=== PATIENT | male | born 1940 | race Caucasian/White ===

== ENCOUNTER → 2019-07-07 15:37 | Outpatient (BNVA) | payer MEDICARE, OTHER, SELFPAY | PROVIDERS: Family Provider Nurse Practitioner Family; Visit Provider Family Medicine | DX: Z85.118 Personal history of other malignant neoplasm of bronchus and lung (principal); I70.90 Unspecified atherosclerosis | CPT/HCPCS: 71046 ==

== ENCOUNTER → 2019-09-29 09:59 | Outpatient (BNVA) | payer MEDICARE, OTHER, SELFPAY | PROVIDERS: Family Provider Nurse Practitioner Family; PCP Family Medicine; Visit Provider Anesthesiology Pain Medicine | DX: G50.0 Trigeminal neuralgia (principal); D49.6 Neoplasm of unspecified behavior of brain | CPT/HCPCS: 99203; 99205 ==

== ENCOUNTER 2019-11-10 10:46 | Outpatient (CLI) | payer MEDICARE, OTHER, SELFPAY ==
--- NOTE | 2019-11-10 11:00 | MR_ITS ---
WS: [id number] MRI HEAD WITHOUT CONTRAST TECHNIQUE: Sagittal T1, T2 axial, T2 axial FLAIR, axial and coronal T1 images, axial susceptibility w eighted imaging, axial diffusion weighted images, and coronal T2 images were obtained. CLINICAL INFORMATION: tumor COMPARISON: MRI multiple additional prior exams including 2018, 2014, 2013, 2012. 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 This is not significantly changed since . Mass effect on the middle cerebellar peduncle. Mild mass effect on the aqueduct which remains patent. Ventricle size is unchanged. No hydrocephalus. 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 Today's lesion again measures 2.5 x 2.0 cm on the coronal T2 jhon ging as previously measured. Again seen is extension to involve the seventh and eighth proximal crani al nerves. Prior postoperative changes involving the left lateral cerebellum with stable encephalomal acia and gliosis. Mild small vessel changes. Moderate parenchymal volume loss. Normal vascular flow voids at the skull base. No extra axial fluid collections. Mild mucosal thickening ethmoid air cells. No hemosiderin on the susceptibility weighted images. MR/MR head wo con* [id number] IMPRESSION: 1. 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 Associated mass effect on the left cerebellopontine angle and left aspect o f the marly is stable. Stable mass effect on the aqueduct and middle cerebellar peduncle. 3. No hydrocephalus. 4. No other significant changes.
== END 2019-11-10 10:47 | disposition home or self-care (01) ==
LOC: RADSHAW 10:54
PROVIDERS: PCP Family Medicine; Visit Provider Family Medicine
DX: D49.6 Neoplasm of unspecified behavior of brain (principal)
CPT/HCPCS: 70551

== ENCOUNTER → 2019-11-15 08:58 | Outpatient (BNVA) | payer MEDICARE, OTHER, SELFPAY | PROVIDERS: Family Provider Nurse Practitioner Family; PCP Family Medicine; Visit Provider Anesthesiology Pain Medicine | DX: G50.0 Trigeminal neuralgia (principal) | CPT/HCPCS: 99212; 99213 ==

== ENCOUNTER → 2020-01-19 12:21 | Outpatient (BNVA) | payer MEDICARE, OTHER, SELFPAY | PROVIDERS: Family Provider Nurse Practitioner Family; PCP Family Medicine; Visit Provider Family Medicine | DX: R30.0 Dysuria (principal); R97.20 Elevated prostate specific antigen [PSA] | CPT/HCPCS: G0103 ==

== ENCOUNTER → 2020-02-23 11:46 | Outpatient (BNVA) | payer MEDICARE, OTHER, SELFPAY | PROVIDERS: Family Provider Nurse Practitioner Family; PCP Family Medicine; Visit Provider Family Medicine | DX: R19.7 Diarrhea, unspecified (principal) | CPT/HCPCS: 87177; 87205; 87209; 87493; 87506 ==

== ENCOUNTER → 2020-03-14 08:58 | Outpatient (BNVA) | payer MEDICARE, OTHER, SELFPAY | PROVIDERS: Family Provider Nurse Practitioner Family; PCP Family Medicine; Referring Provider Family Medicine; Visit Provider Urology | DX: N40.1 Benign prostatic hyperplasia with lower urinary tract symptoms (principal); R35.1 Nocturia; R30.0 Dysuria | CPT/HCPCS: 81003 ==

== ENCOUNTER 2020-04-10 14:58 | Outpatient (CLI) | payer MEDICARE, OTHER, SELFPAY ==
--- NOTE | 2020-04-10 15:03 | USCV_ITS ---
RiosChuck Age: 79 Gender: M : 1940 Exam Date: 04/10/2020 14:56 Ordering Phys: Anabel Lewis MD Technologist: Anita Chandler [place] [facility] [place]: left carotid bruit Risk Factors: Previous Vascular Surgery: Right Brachial BP: / Left Brachial BP: / Right Left Velocity (cm/s) Spectral Plaque Velocity (cm/s) Spectral Plaque Syst/Diast Broadening Syst/Diast Broadening 72.80/ 16.50 Prox CCA 66.60 / 15.60 60.60/ 14.30 Mid CCA 62.40 / 14.60 48.50/ 17.60 Distal CCA 53.10 / 12.50 37.60/ 10.00 Prox ICA 45.40 / 17.60 52.90/ 19.90 Mid ICA 56.30 / 20.20 49.80/ 17.60 Distal ICA 60.50 / 21.80 88.20 ECA 57.10 0.87 ICA/CCA 0.97 Antegrade Vertebral Antegrade 27.60/ 9.20 cm/s 26.60/ 11.00 cm/s Tri Subclavian Tri 63.60 89.90 CONCLUSIONS Right ICA stenosis <50%. Mild atheromatous plaque right carotid bulb/ICA. Left ICA stenosis <50%. Mild atheromatous plaque left carotid bulb/ICA. Normal antegrade Doppler flow noted in the right vertebral artery. Normal antegrade Doppler flow noted in the left vertebral artery. Nba Jean Baptiste MD (Electronically Signed) Final Date: 10 April 2020 17:13 S
== END 2020-04-10 14:59 | disposition home or self-care (01) ==
LOC: RAD 15:02
PROVIDERS: PCP Family Medicine; Visit Provider Family Medicine
DX: I65.23 Occlusion and stenosis of bilateral carotid arteries (principal)
CPT/HCPCS: 93880

== ENCOUNTER → 2020-04-26 10:36 | Outpatient (BNVA) | payer MEDICARE, OTHER, SELFPAY | PROVIDERS: PCP Family Medicine; Visit Provider Urology | DX: N40.1 Benign prostatic hyperplasia with lower urinary tract symptoms (principal) | CPT/HCPCS: 81003 ==

== ENCOUNTER → 2020-08-31 11:08 | Outpatient (BNVA) | payer MEDICARE, OTHER, SELFPAY | PROVIDERS: PCP Family Medicine; Visit Provider Internal Medicine Pulmonary Disease | DX: Z01.812 Encounter for preprocedural laboratory examination (principal); Z20.822 Contact with and (suspected) exposure to COVID-19 | CPT/HCPCS: 87635 ==

== ENCOUNTER 2020-09-06 13:29 | Outpatient (CLI) | payer MEDICARE, OTHER, SELFPAY ==
--- NOTE | 2020-09-06 14:07 | PFTS_ITS ---
Date of Study:09/06/20 Date of Dictation: 09/07/2020 MECHANICS: Prebronchodilator forced vital capacity (FVC) is normal. Prebronchodilator forced expiratory volume in one second (FEV1) is mildly reduced 106%. FEV1/FVC is reduced. There is no postbronchodilator study performed. FLOW VOLUME LOOP: Normal . LUNG VOLUMES: Total lung capacity (TLC) is normal. Residual volume (RV) is normal. DIFFUSING CAPACITY FOR CARBON MONOXIDE: Mildly reduced 75% . INTERPRETATION: The prebronchodilator spirometry suggestive of mild obstruction. Flow volume loop and lung volumes are normal. There is mild gas transfer defect.. Please correlate clinically. MTDD
--- NOTE | 2020-09-06 14:14 | XR_ITS ---
WS: [id number] Chest 2 views, 09/06/2020 Clinical Data: COPD Comparison: PA and lateral chest, 07/07/2019. Findings: No nodules, masses or effusions are seen. The heart is normal. The pulmonary vascularity is not increased. No pneumonia or pneumothorax is seen. The aortic arch and descending aorta shows mild tortuosity. There are surgical clips in the left hilum. There is a left cardiophrenic fat pad or cys t with left pleural reaction. XR/XR chest 2V* [id number] Impression: Atherosclerosis.
== END 2020-09-06 13:30 | disposition home or self-care (01) ==
PROVIDERS: PCP Family Medicine; Visit Provider Internal Medicine Pulmonary Disease
DX: J44.9 Chronic obstructive pulmonary disease, unspecified (principal); I70.90 Unspecified atherosclerosis
CPT/HCPCS: 71046; 94010; 94726; 94729

== ENCOUNTER 2020-10-11 21:27 | Emergency (ER) | payer MEDICARE, OTHER, SELFPAY ==
--- NOTE | 2020-10-11 21:34 | W.ED.FALL ---
HPI - Fall General: Chief Complaint: Fall Stated Complaint: fall head lac Time Seen by Provider: 10/11/20 21:29 Source: patient and EMS Mode of arrival: EMS Limitations: no limitations History of Present Illness: HPI Narrative: 80-year-old male who was recently released from [facility] yesterday after having a brain tumor removed. He tripped and fell today at [facility] at [facility] and struck his head. He does have a hematoma to the right forehead. Denies any loss conscious. He denies headache. Denies any other injuries. Denies any pain in his upper or lower extremities. Associated symptoms-after fall: Denies abdominal pain, chest pain, headache(s) or neck pain Review of Systems Const: Denies: fever(s), chills, body aches or change in appetite Eyes: Denies: blurry vision or eye discomfort ENMT: Denies: throat pain or dental pain Card: Denies: chest pain Resp: Denies: dyspnea GI: Denies: abdominal pain, nausea, vomiting or diarrhea : Denies: dysuria Musc: Denies: neck pain or back pain Skin/Breast: Denies: rash Neuro: Denies: headache(s) Psych: Denies: depression Theodore/Lymph: Denies: easy bruising All/Imm: Denies: urticaria PFSH ED PFSH: Medical History Anxiety Aortic aneurysm Cataract Cerebellar tumor Diverticulitis Emphysema lung H/O: lung cancer 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 FRANK (obstructive sleep apnea) Pain management contract signed Skin lesion Surgical History Hx of appendectomy Hx of tonsillectomy Family History Other CHF (congestive heart failure) Lung disease Social History Smoking and tobacco status: former smoker Quit status (tobacco): has quit using tobacco Year quit tobacco: 2004 Alcohol intake: never Household members: spouse Marital status: Physical Exam Const: COMMON NORMALS: no acute distress, patient oriented x3 and healthy appearing HENMT: COMMON NORMALS: normocephalic HEAD & SCALP: normocephalic OTHER: hematoma to right forehead and abrasion to scalp Eye: COMMON NORMALS: Equal, round and reactive pupils present and EOMs intact bilaterally PUPIL: Yes Equal, round and reactive pupils present Neck/C-Spine: COMMON NORMALS: full ROM and supple Chest: COMMONS NORMALS: normal inspection of the chest and normal palpation of entire chest wall Resp: COMMON NORMALS: normal respiratory effort, No retractions, No use of accessory muscles and clear to auscultation bilaterally AUSCULTATION: clear to auscultation bilaterally Cardio: COMMON NORMALS: regular rate, regular rhythm and No murmurs present (Cardio) RATE: regular rate RHYTHM: regular rhythm GI: COMMON NORMALS: Normal to inspection, nondistended, normoactive bowel sounds present, Soft to palpation, non-tender and no masses PALPATION: Yes Soft to palpation Extremity: COMMON NORMALS: normal to inspection and full ROM Neuro: COMMON NORMALS: patient oriented x3, moves all extremities and no focal motor deficits Psych: COMMON NORMALS: mental status grossly normal, Normal thought process present and cooperative THOUGHT PROCESS: Normal thought process present Skin: COMMON NORMALS: no rashes or lesions noted and no wounds GENERAL SKIN EXAM: no rashes or lesions noted MDM - Fall MDM Narrative: Medical decision making narrative: Patient presents here with fall and has a subarachnoid hemorrhage from his fall. I spoke to physician at [facility] and will transfer there for higher level of care for neurosurgery. Lab Data: Labs: Lab Results 10/11/20 10/11/20 10/11/20 Range/Units 22:35 22:35 22:35 WBC 16.6 H (4.0-10.0) 10^3/ uL RBC 4.47 (4.1-5.3) 10^6/u L Hgb 14.6 (11.7-16.6) g/dL Hct 40.8 L (42.0-52.0) % MCV 91.3 (80-94) fL MCH 32.7 (28.0-34.0) pg MCHC 35.8 (30.0-36.0) g/dL RDW 12.1 (12.1-15.1) % Plt Count 171 (130-400) 10^3/c mm MPV 9.4 (7.4-10.4) fL Neut % (Auto) 86.1 % Lymph % (Auto) 3.4 % Clare % (Auto) 7.5 % Eos % (Auto) 0.0 % Baso % (Auto) 0.3 % Neut # (Auto) 14.30 H (1.8-7.7) 10^3/u L Lymph # (Auto) 0.6 L (0.8-4.8) 10^3/u L Clare # (Auto) 1.3 H (0.2-0.9) 10^3/u L Eos # (Auto) 0.0 (0.0-0.8) 10^3/u L Baso # (Auto) 0.1 (0.0-0.1) 10^3/u L Nucleated RBC % (a uto) 0 % Nucleated RBCs # 0.0 /100WBC PT 13.90 (12.1-14.9) SECO NDS INR 1.04 (0.8-1.2) Sodium 127 L (136-145) mmol/L Potassium 4.5 (3.5-5.1) mmol/L Chloride 92 L (98-107) mmol/L Carbon Dioxide 24 (22-29) mmol/L Anion Gap 15.5 (5-19) BUN 32 H (8-23) mg/dL Creatinine 0.7 (0.7-1.2) mg/dL GFR Calculation Not Reportable Glucose 179 H (65-115) mg/dL Calculated Osmolal ity 275 L (285-295) mOsm/k g Calcium 8.6 (8.5-10.5) mg/dL Total Bilirubin 1.3 H (0.15-1.2) mg/dL AST 13 (0-40) U/L ALT 30 (0-41) U/L Alkaline Phosphata se 64 (40-130) IU/L Total Protein 5.8 L (6.6-8.7) g/dL Albumin 3.6 (3.5-5.2) g/dL Globulin 2.2 (1.3-4.6) g/dL Imaging Data^: CT Head: Attestation: I personally reviewed and interpreted this imaging study as follows: Radiologist's impression: [address] [address] [address] Scan Report Signed with Addenda Patient: Chuck Rios Unit #: [id number] : 1940 [id number] Age/Sex: 80 / M ADM Date: 10/11/20 Loc: ER Room/Bed: Attending Dr: Ordering Provider/Ordering MD: Kevin Draper MD Date of Service: 10/11/20 Procedure(s): CT head wo con* [id number] Accession Number(s): [id number] Report Number: [id number]/CT head wo con* [id number] THIS REPORT CONTAINS FINDINGS THAT MAY BE CRITICAL TO PATIENT CARE. The findings were verbally communicated via telephone conference with Dr Martins at 10:22 PM CDT on 10/11/2020. The findings were acknowledged and understood. Radiation Dose CTDIVOL = (mGy): DLP = 907.51 (mGy-cm) Addendum Dictated By: Pedro Mccoy MD Addendum Signed By: Pedro Mccoy MD Signed Date/Time: 10/11/20 Addendum Cosigned By: PROCEDURE INFORMATION: Exam: CT Head Without Contrast Exam date and time: 10/11/2020 9:33 PM Age: 80 years old Clinical indication: Injury or trauma; Blunt trauma (contusions or hematomas); Injury details: Fall. Pain in head and neck. Multiple gonzalo in the back of head and neck. Recent brain surgery; Prior surgery TECHNIQUE: Imaging protocol: Computed tomography of the head without contrast. Radiation optimization: All CT scans at this facility use at least one of these dose optimization techniques: automated exposure control; mA and/or kV adjustment per patient size (includes targeted exams where dose is matched to clinical indication); or iterative reconstruction. COMPARISON: MR head wo con* [id number] 11/10/2019 1:02 PM RADIATION DOSE METRICS: Total DLP (mGy-cm): 907.51 FINDINGS: Brain: There is hyperdensity in the extra-axial region in the left occipital lobe which may represent thickened dura/scarring. Small amount of hemorrhage cannot be excluded. There are moderate periventricular and subcortical lucencies consistent with chronic microvascular ischemic changes. Hyperdensity in the extra-axial region in the right frontal lobe (series 2, image 49 ) may represent a small subarachnoid hemorrhage. Cerebral ventricles: No ventriculomegaly. Paranasal sinuses: Visualized sinuses are unremarkable. No fluid levels. Mastoid air cells: Visualized mastoid air cells are well aerated. Orbital cavity: Scleral banding on the left. Bones/joints: Hyperdensity evidence of prior left occipital craniotomy with postoperative changes. Soft tissues: Unremarkable. CT/CT head wo con* [id number] IMPRESSION: Hyperdensity in the right frontal lobe may represent a small subarachnoid acute hemorrhage. Prior left occipital craniotomy with postoperative changes. Hyperdensity in the extra-axial lesion in the left occipital lobe which may represent thickened dura/scarring. Small amount of hemorrhage cannot be excluded. Short-term follow-up is recommended for stability. Radiation Dose CTDIVOL = (mGy): DLP = 907.51 (mGy-cm) Other CT: Radiologist's impression: [employer] [address] [address] Scan Report Signed Patient: Chuck Rios Unit #: [id number] : 1940 Age/Sex: 80 / M ADM Date: 10/11/20 Loc: ER Room/Bed: Attending Dr: Ordering Provider/Ordering MD: Kevin Draper MD Date of Service: 10/11/20 Procedure(s): CT cervical spin wo con* [id number] Accession Number(s): [id number] Report Number: [id number] PROCEDURE INFORMATION: Exam: CT Cervical Spine Without Contrast Exam date and time: 10/11/2020 9:33 PM Age: 80 years old Clinical indication: Injury or trauma; Blunt trauma; Injury details: Fall. Multiple gonzalo in back of head and neck. Recent brain surgery. ; Prior surgery TECHNIQUE: Imaging protocol: Computed tomography images of the cervical spine without contrast. Radiation optimization: All CT scans at this facility use at least one of these dose optimization techniques: automated exposure control; mA and/or kV adjustment per patient size (includes targeted exams where dose is matched to clinical indication); or iterative reconstruction. COMPARISON: CR Cervical Spine AP/Lat* [id number] 03/30/2019 12:23 PM RADIATION DOSE METRICS: Total DLP (mGy-cm): 652.31 FINDINGS: Bones/joints: No acute fracture. Grade 1 anterolisthesis of C4 over C5. Multilevel degenerative disc disease. Discs/Spinal canal/Neural foramina: There is multilevel uncovertebral and facet hypertrophy with neural foramina narrowing. Lungs: Lung apices are normal. Soft tissues: Unremarkable. CT/CT cervical spin wo con* [id number] IMPRESSION: No acute abnormality. Radiation Dose CTDIVOL = (mGy): DLP = 652.31 Critical Care Time Critical Care Time: Critical Care Time: Yes Total Critical Care Time: 35 Attestation: This case had a high probability of a clinically significant, sudden, or life threatening deterioration of this patient's condition which required my full and direct attention, intervention and personal management. Discharge Plan Discharge Patient Disposition: Xfer Short-Term Hosp Clinical Impression: Subarachnoid hemorrhage Fall Qualifiers: Encounter type: initial encounter Qualified Code(s): W19.XXXA - Unspecified fall, initial encounter Condition: Stable Referrals: Mary Jo Hahn MD [Primary Care Provider] - Coding Level of Care Code ED Thread Inspector for g Fwd Exam Comprehensive
[2020-10-11 21:42] VITALS: BMI 23.6
[2020-10-11 21:53] VITALS: BP 140/78; PULSE 88; RESP 18; TEMP 37.1; O2SAT 92
--- NOTE | 2020-10-11 22:14 | PC.NURSE ---
Wound cleaned of blood to expose lac. Approx 1 inch lac to top back of head noted. Bleeding controlled without bandage. notified.
[2020-10-11 22:44] LABS: Basophils # 0.1 10^3/uL (0.0-0.1); Basophils % 0.3 %; Hematocrit 40.8 % (42.0-52.0); Hemoglobin 14.6 g/dL (11.7-16.6); Lymphocytes # 0.6 10^3/uL (0.8-4.8); Lymphocytes % 3.4 %; Mean Corpuscular HGB Conc 35.8 g/dL (30.0-36.0); Mean Corpuscular Hemoglobin 32.7 pg (28.0-34.0); Mean Corpuscular Volume 91.3 fL (80-94); Mean Platelet Volume 9.4 fL (7.4-10.4); Monocytes # 1.3 10^3/uL (0.2-0.9); Monocytes % 7.5 %; Neutrophils % 86.1 %; Nucleated Red Blood Cells % 0 %; Platelet Count 171 10^3/cmm (130-400); Red Blood Count 4.47 10^6/uL (4.1-5.3); Red Cell Distribution Width 12.1 % (12.1-15.1); White Blood Count 16.6 10^3/uL (4.0-10.0)
--- NOTE | 2020-10-11 22:44 | PC.NURSE ---
in room; she states pt has had some residual L sided weakness after the recent brain surgery. Denies dementia. 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 She states he can hear a little in R ear. notified.
[2020-10-11 22:56] LABS: INR 1.04 (0.8-1.2)
[2020-10-11 23:02] LABS: Alanine Aminotransferase 30 U/L (0-41); Albumin Level 3.6 g/dL (3.5-5.2); Alkaline Phosphatase 64 IU/L (40-130); Aspartate Amino Transferase 13 U/L (0-40); Blood Urea Nitrogen 32 mg/dL (8-23); Calcium 8.6 mg/dL (8.5-10.5); Carbon Dioxide 24 mmol/L (22-29); Chloride 92 mmol/L (98-107); Globulin 2.2 g/dL (1.3-4.6); Glucose 179 mg/dL (65-115); Osmolality Calculated 275 mOsm/kg (285-295); Sodium 127 mmol/L (136-145); Total Bilirubin 1.3 mg/dL (0.15-1.2); Total Protein 5.8 g/dL (6.6-8.7)
[2020-10-11 23:04] LABS: Anion Gap 15.5 (5-19)
[2020-10-11 23:05] LABS: Potassium 4.5 mmol/L (3.5-5.1)
[2020-10-11 23:23] VITALS: BP 142/88; PULSE 89; RESP 16; O2SAT 92
--- NOTE | 2020-10-11 23:32 | PC.NURSE ---
Report called to Parul VALDEZ, [place], [place] to Keysha Thompson RN
[2020-10-11 23:59] VITALS: BP 140/68; PULSE 78; RESP 16; O2SAT 92
== END 2020-10-12 00:05 | disposition short-term general hospital (02) ==
PROVIDERS: Emergency Provider Emergency Medicine; PCP Family Medicine
DX: S06.6X9A Traumatic subarachnoid hemorrhage with loss of consciousness of unspecified duration, initial encounter (principal); W01.0XXA Fall on same level from slipping, tripping and stumbling without subsequent striking against object, initial encounter; Y92.129 Unspecified place in nursing home as the place of occurrence of the external cause; J43.9 Emphysema, unspecified; Z85.118 Personal history of other malignant neoplasm of bronchus and lung; I10 Essential (primary) hypertension; Z87.891 Personal history of nicotine dependence
CPT/HCPCS: 70450; 72125; 80053; 85025; 85610; 99285

== ENCOUNTER 2020-10-25 19:10 | Emergency (ER) | payer MEDICARE, OTHER, SELFPAY ==
[2020-10-25 19:11] VITALS: BP 118/79; PULSE 91; RESP 14; O2SAT 100; BMI 30.5
--- NOTE | 2020-10-25 19:13 | CTR_ITS ---
PROCEDURE INFORMATION: Exam: CT Head Without Contrast Exam date and time: 10/25/2020 7:13 PM Age: 80 years old Clinical indication: Altered mental status/memory loss; Prior surgery; Additional info: Altered. Recent brain surgery TECHNIQUE: Imaging protocol: Computed tomography of the head without contrast. Radiation optimization: All CT scans at this facility use at least one of these dose optimization techniques: automated exposure control; mA and/or kV adjustment per patient size (includes targeted exams where dose is matched to clinical indication); or iterative reconstruction. COMPARISON: CT head wo con* [id number] 10/11/2020 9:45 PM RADIATION DOSE METRICS: Total DLP (mGy-cm): 1236.04 FINDINGS: Brain: Moderate diffuse atrophy of the brain parenchyma. Focal low-attenuation signal within the posterior supratentorial white matter is noted consistent with chronic small vessel ischemic disease. Similar appearance of posterior circulation infarct involving the left cerebellar peduncles and left cerebellar lobe. Cerebral ventricles: No hydrocephalus. Paranasal sinuses: Visualized sinuses are unremarkable. No fluid levels. Mastoid air cells: Visualized mastoid air cells are well aerated. Orbital cavity: Scleral banding around the left globe and post cataract surgical changes noted. Bones/joints: Sequela prior left occipital craniotomy again noted. Soft tissues: Unremarkable. CT/CT head wo con* [id number] IMPRESSION: 1. No acute intracranial abnormality. 2. 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 3. Moderate diffuse cerebral atrophy and sequela of chronic small vessel ischemic disease. Radiation Dose CTDIVOL = (mGy): DLP = 1236.04 (mGy-cm)
--- NOTE | 2020-10-25 19:20 | CTR_ITS ---
PROCEDURE INFORMATION: Exam: CT Cervical Spine Without Contrast Exam date and time: 10/25/2020 7:20 PM Age: 80 years old Clinical indication: Injury or trauma; Fall; Blunt trauma; Additional info: Fall, found unresponsive TECHNIQUE: Imaging protocol: Computed tomography images of the cervical spine without contrast. Radiation optimization: All CT scans at this facility use at least one of these dose optimization techniques: automated exposure control; mA and/or kV adjustment per patient size (includes targeted exams where dose is matched to clinical indication); or iterative reconstruction. COMPARISON: CT cervical spin wo con* [id number] 10/11/2020 9:48 PM RADIATION DOSE METRICS: Total DLP (mGy-cm): 526.74 FINDINGS: Bones/joints: No acute fracture. Normal alignment. Discs/Spinal canal/Neural foramina: Moderate multilevel DJD of the cervical spine. Left occipital craniotomy changes noted. Mastoid air cells: Partially fluid-filled left mastoid air cells without osseous erosive changes. Lungs: Lung apices are normal. Soft tissues: Unremarkable. CT/CT cervical spin wo con* [id number] IMPRESSION: No acute findings. Radiation Dose CTDIVOL = (mGy): DLP = 526.74 (mGy-cm)
--- NOTE | 2020-10-25 19:20 | CTR_ITS ---
PROCEDURE INFORMATION: Exam: CT Chest Without Contrast; Diagnostic Exam date and time: 10/25/2020 7:20 PM Age: 80 years old Clinical indication: Injury or trauma; Fall; Generalized; Blunt trauma (contusions or hematomas); Additional info: Found unresponsive TECHNIQUE: Imaging protocol: Diagnostic computed tomography of the chest without contrast. Radiation optimization: All CT scans at this facility use at least one of these dose optimization techniques: automated exposure control; mA and/or kV adjustment per patient size (includes targeted exams where dose is matched to clinical indication); or iterative reconstruction. COMPARISON: CR XR chest 2V* [id number] 09/06/2020 2:32 PM RADIATION DOSE METRICS: Total DLP (mGy-cm): 1923.79 FINDINGS: Lungs: Moderate severity emphysema. No airspace consolidation. Densely calcified circumscribed right lower lobe granuloma. Trace left-sided pleural effusion. Negative for pneumothorax. Pleural spaces: See Lungs finding. Heart: Unremarkable. No cardiomegaly. No pericardial effusion. Mediastinal space: No mediastinal fluid collection or hematoma. No thoracic esophageal wall thickening. Aorta: Unremarkable. No aortic aneurysm. Lymph nodes: Unremarkable. No enlarged lymph nodes. Bones/joints: Thoracic spinal alignment is anatomic. No acute thoracic vertebral fracture. No suspicious, lytic bone lesion. Subacute nondisplaced fracture with partial healing in right lateral rib 3. Soft tissues: Soft tissues of chest wall are unremarkable. IMPRESSION: Negative for thoracic injury. PROCEDURE INFORMATION: Exam: CT Abdomen And Pelvis Without Contrast Exam date and time: 10/25/2020 7:20 PM Age: 80 years old Clinical indication: Injury or trauma; Fall; Generalized; Blunt trauma (contusions or hematomas); Additional info: Found unresponsive TECHNIQUE: Imaging protocol: Computed tomography of the abdomen and pelvis without contrast. Radiation optimization: All CT scans at this facility use at least one of these dose optimization techniques: automated exposure control; mA and/or kV adjustment per patient size (includes targeted exams where dose is matched to clinical indication); or iterative reconstruction. COMPARISON: CR XR chest 2V* [id number] 09/06/2020 2:32 PM RADIATION DOSE METRICS: Total DLP (mGy-cm): 1923.79 FINDINGS: Liver: Numerous large simple cysts throughout liver. Gallbladder and bile ducts: Cholelithiasis. No gallbladder wall thickening. Nondilated biliary system. Pancreas: Normal. No ductal dilation. Spleen: Normal. No splenomegaly. Adrenal glands: Normal. No mass. Kidneys and ureters: Bilateral simple renal cysts. Negative hydronephrosis. No renal injury. Stomach and bowel: Diverticulosis coli. No inflammatory wall thickening changes of the bowel loops. Negative for bowel obstruction. Negative for bowel perforation. Appendix: Appendectomy. Intraperitoneal space: Unremarkable. No free air. No significant fluid collection. Vasculature: Mild ectasia of abdominal aorta. Scattered atherosclerosis. Negative for periaortic hematoma. Lymph nodes: Unremarkable. No enlarged lymph nodes. Urinary bladder: Morin catheter within bladder. Bladder decompressed. Reproductive: Mild severity prostate gland enlargement. Bones/joints: No acute pelvic fractures. No acute lumbar spine fractures. Lumbar spinal alignment is anatomic. Soft tissues: Soft tissues of abdominal wall are unremarkable. CT/CT chest abd pel wo con IMPRESSION: Negative for acute abdominopelvic injury. COMMENTS: Consistent with the [place] [employer]'s Incidental Findings Committee white paper (J Am Orly Radiol 2018): Any incidental renal lesion less than 1 cm or classified as too small to characterize, or any incidental cystic renal lesion characterized as simple-appearing, is likely benign. No follow-up imaging is recommended for these lesions per consensus recommendations based on imaging criteria. Radiation Dose CTDIVOL = (mGy): DLP = 1923.79~1923.79 (mGy-cm)
[2020-10-25 19:38] VITALS: BP 112/66; PULSE 78; RESP 16; O2SAT 100
[2020-10-25 19:41] LABS: ABG PCO2 41.5 mmHg (35-45); Arterial Blood Gas Hematocrit 38.6 % (42-52); Base Excess ABG 0.9 mmol/L (-2.0-2.0); Blood Gas Allen Test Pos; Blood Gas Operator Identificat CAK; Blood Gas Sample Site Radial, left; Blood Gas Sample Type Arterial; Carboxyhemoglobin 1.1 %THgb (0.4-20.1); HCO3 ABG 25.8 mmol/L (22-26); HGB O2 Sat 95.8 % (95-100); Methemoglobin 0.8 % (0.4-1.5); Oxygen Device NC; PO2 ABG 89.9 mmHg (80.0-100.0); Total Hemoglobin 12.6 g/dL (14-18)
[2020-10-25] MEDS: ondansetron 2 mg/ML SDV 2 mL 4 MG IVP (19:55)
[2020-10-25] MEDS: sodium chloride 0.9% 1,000 ML 999 ML IV ×2 (19:55→22:01)
[2020-10-25 21:19] VITALS: BP 112/68; PULSE 82; RESP 16; O2SAT 97
[2020-10-25 22:04] LABS: Basophils % 0.4 %; Eosinophils % 0.1 %; Hematocrit 31.8 % (42.0-52.0); Hemoglobin 10.7 g/dL (11.7-16.6); Lymphocytes # 0.3 10^3/uL (0.8-4.8); Lymphocytes % 4.9 %; Mean Corpuscular HGB Conc 33.6 g/dL (30.0-36.0); Mean Corpuscular Hemoglobin 32.7 pg (28.0-34.0); Mean Corpuscular Volume 97.2 fL (80-94); Monocytes # 0.5 10^3/uL (0.2-0.9); Monocytes % 7.1 %; Neutrophils # 6.05 10^3/uL (1.8-7.7); Neutrophils % 87.1 %; Nucleated Red Blood Cells % 0 %; Platelet Count 173 10^3/cmm (130-400); Red Blood Count 3.27 10^6/uL (4.1-5.3); Red Cell Distribution Width 12.3 % (12.1-15.1)
[2020-10-25 22:07] VITALS: BP 102/65; PULSE 81; RESP 16; O2SAT 95
[2020-10-25 22:21] LABS: Lactic Sepsis W/Reflex 0.8 mmol/L (0.5-2.2)
[2020-10-25 22:22] LABS: Troponin(5th) Baseline 15 ng/L (0-15)
[2020-10-25 22:32] LABS: Alanine Aminotransferase 14 U/L (0-41); Albumin Level 3.1 g/dL (3.5-5.2); Alkaline Phosphatase 81 IU/L (40-130); Anion Gap 13.2 (5-19); Aspartate Amino Transferase 12 U/L (0-40); Blood Urea Nitrogen 17 mg/dL (8-23); Calcium 8.4 mg/dL (8.5-10.5); Carbon Dioxide 24 mmol/L (22-29); Chloride 100 mmol/L (98-107); Creatine Phosphokinase 100 U/L (39-308); Globulin 2.2 g/dL (1.3-4.6); Glucose 99 mg/dL (65-115); NT Pro B Type Natriuretic Pept 58 pg/mL (0-450); Osmolality Calculated 278 mOsm/kg (285-295); Potassium 4.2 mmol/L (3.5-5.1); Sodium 133 mmol/L (136-145); Total Bilirubin 0.3 mg/dL (0.15-1.2); Total Protein 5.3 g/dL (6.6-8.7)
[2020-10-25 23:20] VITALS: BP 134/80; PULSE 77; RESP 16; O2SAT 96
--- NOTE | 2020-10-25 23:29 | PM.HP ---
Providers/Chief Complaint Primary Care Provider: Mary Jo Hahn MD Chief Complaint: unresponsive poss aspiration History of Present Illness Chuck Rios is a 80 year old male Medications/Allergies Home Medications Medication Instructions Recorded Confirmed Last Taken Type lisinopril 10 mg tablet 10 mg PO DAILY@0800 05/18/19 10/25/20 10/25/20 History acetaminophen 325 mg tablet 650 mg PO QID PRN tab 10/10/20 10/25/20 Unknown History famotidine 20 mg tablet 20 mg PO BID@0800,199910/10/20 10/25/20 10/25/20 History Hydroxymethylcellulose 2 drp OPHTHALMIC (EYE) TID@06,14,10/25/20 10/25/20 10/25/20 History Noxifloacin Opthalnic 1 drp OPHTHALMIC (EYE) Q6H 10/25/20 10/25/20 10/25/20 History cephalexin 500 mg PO Q12H 10/25/20 10/25/20 10/25/20 History docusate sodium 100 mg PO BID@0800,199910/25/20 10/25/20 10/25/20 History Allergies Allergy/AdvReac Type Severity Reaction Status Date / Time Iodinated Contrast Media Allergy ALGY-Anaphy Verified 05/07/20 13:03 laxis PFSH Acute PFSH: Medical History Anxiety Aortic aneurysm Cataract Cerebellar tumor Diverticulitis Emphysema lung H/O: lung cancer 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 FRANK (obstructive sleep apnea) Pain management contract signed Skin lesion Surgical History Hx of appendectomy Hx of tonsillectomy Family History Other CHF (congestive heart failure) Lung disease Social History Smoking and tobacco status: former smoker Quit status (tobacco): has quit using tobacco Year quit tobacco: 2004 Alcohol intake: never Household members: spouse Marital status: Vitals/I&O/Wt Last Vital Signs Pulse 77 10/25/20 23:20 Resp 16 10/25/20 23:20 BP 134/80 10/25/20 23:20 Pulse Ox 96 10/25/20 23:20 Weight last 48 hrs Weight 88.451 kg Data : 10/25/20 21:57 10/25/20 21:57 Micro: Microbiology 10/25/20 20:31 Blood Culture - Preliminary Blood SPECIMEN COLLECTED 10/25/20 20:21 Blood Culture - Preliminary Blood SPECIMEN COLLECTED Coding Level of Care Code 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
--- NOTE | 2020-10-25 23:31 | ED_ITS ---
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 He also visited the ER on the after a fall where he had a subarachnoid hemorrhage. [facility] and the report is today they went in to feed him dinner and they found him slumped over in a chair unresponsive. They placed him on the ground and started performing CPR when brown liquid started coming out of his mouth and but he began to vomit. He also became responsive and was breathing when they started CPR. They found milk duds candy on his table and think the brown stuff could have been dissolved milk ducts that he was eating. He is supposed to be on a pur?ed diet. On arrival to the ER he has a bandage over his left eye where there was an apparent cataract surgery. The bandage was taped to an open eyes so gauze is directly in contact with his cornea and it appears irritated. His right eye opens when he is talked to or with mild painful stimuli and he will answer a basic question and then close his eye again. He squeezes with both hands well. Family member says that since his surgery with the left-sided tumor removed on 02 October he has had severe lack of coordination on the left side of his body. She says at baseline he is able to talk but walks around with help so most of the time he is in bed. She says today is a definite change in that he is normally alert and able to talk and have conversations but today he falls asleep quickly after stimulation and answers only some questions appropriately. Unknown time of onset of the symptoms as he was found slumped over in a chair. Also he has 2 procedures on his brain in the past month which would make him a contraindication for potential TPA administration. Associated symptoms: Reports vomiting; Deny chest pain or headache(s) Review of Systems General: Reports: Other (Limited due to medical condition) Const: Denies: fever(s) Card: Denies: chest pain Resp: Denies: dyspnea GI: Reports: vomiting; Denies: abdominal pain Neuro: Denies: headache(s) [facility] ED PFSH: Medical History Anxiety Aortic aneurysm Cataract Cerebellar tumor Diverticulitis Emphysema lung H/O: lung cancer Hypertension [facility]PC (current) use of opiate analgesic FRANK (obstructive sleep apnea) Pain management contract signed Skin lesion Surgical History Hx of appendectomy Hx of tonsillectomy Family History Other CHF (congestive heart failure) Lung disease Social History Smoking and tobacco status: former smoker Quit status (tobacco): has quit using tobacco Year quit tobacco: 2004 Alcohol intake: never Household members: spouse Marital status: Physical Exam Narrative: EXAM NARRATIVE: The patient has a patch over his left eye with gauze directly on his cornea because the eye is not shot below it. He is responding and he is inattentive however he will respond to verbal stimuli and open his right eye though quickly loses focus and closes it again. He will respond to all painful stimuli as well. With similar response. He answers most questions appropriately but some inappropriately. He has strength in bilateral upper extremities. He was not focused enough to test lower extremities however he does move them spontaneously. Normal respirations satting 100% on room air. Vomitus around mouth and shirt crusted. Const: EXAM LIMITATIONS: altered mental status GENERAL APPEARANCE: lethargic and ill appearing ORIENTATION/CONSCIOUSNESS: Yes lethargic HENMT: COMMON NORMALS: normocephalic, external ears normal and Normal external nose present HEAD & SCALP: normal to inspection and normocephalic NOSE: Normal external nose present EXTERNAL EAR: Yes external ears normal MOUTH: Normal oral and palatal mucosa present THROAT: posterior oropharynx normal Eye: OTHER: Right eye normal. Tracks well and has normal pupil response to light.. Left eye had recent cataract procedure and has gauze taped to his left eye. The eye is open and the gauze have been on the cornea for some time. It is opaque. He likely cannot see out of this eye. Neck/C-Spine: COMMON NORMALS: full ROM, no lymphadenopathy, no meningeal signs and no JVD GENERAL: Yes normal visual inspection Lymph: LYMPHATIC: no lymphadenopathy noted Chest: COMMONS NORMALS: normal inspection of the chest and normal palpation of entire chest wall Resp: COMMON NORMALS: normal respiratory effort, No retractions, No use of accessory muscles, clear to auscultation bilaterally and percussion normal EFFORT & INSPECTION: Yes able to speak in complete sentences AUSCULTATION: clear to auscultation bilaterally PERCUSSION: percussion normal Cardio: COMMON NORMALS: no JVD, regular rate, regular rhythm, S1 normal heart sound present, S2 normal heart sound present and Peripheral pulses 2+ throughout RATE: regular rate RHYTHM: regular rhythm HEART SOUNDS: S1 normal heart sound present and S2 normal heart sound present PERIPHERAL PULSES: Peripheral pulses 2+ throughout GI: COMMON NORMALS: Normal to inspection, nondistended, normoactive bowel sounds present, non-tender and no masses INSPECTION: Yes normal to inspection OTHER: mild tenderness diffusely : COMMON NORMALS: Yes no CVA tenderness BLADDER/KIDNEY EXAM: Yes no CVA tenderness Back/Pelvis: COMMON NORMALS: no CVA tenderness, thoracic and lumbar spine normal to inspection, no thoracic nor lumbar tenderness and thoraco-lumbar ROM normal Extremity: COMMON NORMALS: normal to inspection, full ROM, capillary refill normal, no joint enlargement and no pedal edema GENERAL: Yes normal exam except as noted Neuro: COMMON NORMALS: CN's II-XII intact bilaterally, moves all extremities, no focal motor deficits, no sensory deficits noted and gait normal SENSORIUM/ORIENTATION: Yes lethargic MENINGEAL SIGNS: Yes no meningeal signs Psych: COMMON NORMALS: mental status grossly normal, Normal thought process present, cooperative, normal affect and speech normal ATTITUDE: Yes calm SPEECH: Yes normal speech THOUGHT PROCESS: Normal thought process present Skin: COMMON NORMALS: no rashes or lesions noted GENERAL SKIN EXAM: no rashes or lesions noted Course Vital Signs: Vital signs: Vital Signs Pulse Rate 77 10/25/20 23:20 Respiratory Rate 16 10/25/20 23:20 Blood Pressure 134/80 10/25/20 23:20 Pulse Oximetry 96 10/25/20 23:20 MDM - Neuro Symptoms/Deficit MDM Narrative: Medical decision making narrative: The patient came to the ER after an apparent unresponsive episode at the correction. Unknown time of onset as well. He was laid flat on the floor and CPR was done. The patient became responsive regained pulse and began to vomit brown stuff. He had milk duds on his desk and is supposed to be on a pur?ed diet only. half-way thought maybe he possibly aspirated on a milk dud and called 911. EMS noted he was lethargic but responsive to painful stimuli. On arrival to the ER he has a left eye patch with his left eye open underneath it and gauze directly in contact with that eye which is opaque. He is responsive to verbal stimuli on arrival and painful stimuli where he will open his right eye make eye contact with you and possibly answer a question correctly and sometimes answer question incorrectly or lose focus. His baseline is apparently talkative but he has been very uncoordinated on the left side since his cerebellar procedure a month ago. He also had a subarachnoid hemorrhage after a fall on September 10. Unclear if his symptoms are strokelike though there certainly not focal on exam. He is also not a candidate with 2 recent brain procedures and unknown onset of symptoms. Labs were mostly unremarkable. Head CT shows possible posterior circulation stroke near the procedure. Discussed with Dr. Wilde patient's condition and he prefers transfer back to [facility] where he had his procedures done. I discussed with Dr. Leong neurosurgeon who suspects the area is a hypodensity and not a stroke related to his tumor. He is concerned that the patient was coded as he was also coded after his brain surgery. Recommends transfer to [facility] ED. Discussed with [facility] ED physician Dr. Palumbo who accepts for transfer. Lab Data: Labs: Lab Results 10/25/20 10/25/20 10/25/20 Range/Units 19:30 21:57 21:57 WBC 7.0 (4.0-10.0) 10^3/ uL RBC 3.27 L (4.1-5.3) 10^6/u L Hgb 10.7 L (11.7-16.6) g/dL Hct 31.8 L (42.0-52.0) % MCV 97.2 H (80-94) fL MCH 32.7 (28.0-34.0) pg MCHC 33.6 (30.0-36.0) g/dL RDW 12.3 (12.1-15.1) % Plt Count 173 (130-400) 10^3/c mm MPV 9.0 (7.4-10.4) fL Neut % (Auto) 87.1 % Lymph % (Auto) 4.9 % Leslie % (Auto) 7.1 % Eos % (Auto) 0.1 % Baso % (Auto) 0.4 % Neut # (Auto) 6.05 (1.8-7.7) 10^3/u L Lymph # (Auto) 0.3 L (0.8-4.8) 10^3/u L Leslie # (Auto) 0.5 (0.2-0.9) 10^3/u L Eos # (Auto) 0.0 (0.0-0.8) 10^3/u L Baso # (Auto) 0.0 (0.0-0.1) 10^3/u L Nucleated RBC % (a uto) 0 % Nucleated RBCs # 0.0 /100WBC Specimen Type Arterial Sample Site Radial, left ABG pH 7.40 (7.35-7.45) ABG pCO2 41.5 (35-45) mmHg ABG pO2 89.9 (80.0-100.0) mmH g ABG HCO3 25.8 (22-26) mmol/L ABG Base Excess 0.9 (-2.0-2.0) mmol/ L Alberto Test Pos Hematocrit 38.6 L (42-52) % Hgb O2 Saturation 95.8 (95-100) % Carboxyhemoglobin 1.1 (0.4-20.1) %THgb Methemoglobin 0.8 (0.4-1.5) % Total Hemoglobin 12.6 L (14-18) g/dL O2 Delivery Device Nc O2 Liters/Min 2.0 % Environmental Research Project Manager ID Cak Sodium 133 L (136-145) mmol/L Potassium 4.2 (3.5-5.1) mmol/L Chloride 100 (98-107) mmol/L Carbon Dioxide 24 (22-29) mmol/L Anion Gap 13.2 (5-19) BUN 17 (8-23) mg/dL Creatinine 0.8 (0.7-1.2) mg/dL GFR Calculation Not Reportable Glucose 99 (65-115) mg/dL Calculated Osmolal ity 278 L (285-295) mOsm/k g Lactic Acid (0.5-2.2) mmol/L Calcium 8.4 L (8.5-10.5) mg/dL Total Bilirubin 0.3 (0.15-1.2) mg/dL AST 12 (0-40) U/L ALT 14 (0-41) U/L Alkaline Phosphata se 81 (40-130) IU/L Creatine Kinase 100 (39-308) U/L Troponin T Baselin e (0-15) ng/L NT-Pro-B Natriuret Pep 58 (0-450) pg/mL Total Protein 5.3 L (6.6-8.7) g/dL Albumin 3.1 L (3.5-5.2) g/dL Globulin 2.2 (1.3-4.6) g/dL Urine Color (Yellow) Urine Appearance (CLEAR) Urine pH (5-7) Ur Specific Gravit y (1.005-1.030) Urine Protein (Negative) Urine Glucose (UA) (Normal) Urine Ketones (Negative) Urine Blood (Negative) Urine Nitrate (Negative) Urine Bilirubin (Negative) Urine Urobilinogen (Negative) mg/dL Ur Leukocyte Xochilt ase (Negative) Urine RBC (0-2) /hpf Urine WBC (0-5) /hpf Ur Squamous Epith Cells (0-5) /hpf Amorphous Sediment Urine Bacteria (NONE) /hpf Hyaline Casts /lpf Urine Mucus /hpf 10/25/20 10/25/20 10/25/20 Range/Units 21:57 21:57 22:10 WBC (4.0-10.0) 10^3/ uL RBC (4.1-5.3) 10^6/u L Hgb (11.7-16.6) g/dL Hct (42.0-52.0) % MCV (80-94) fL MCH (28.0-34.0) pg MCHC (30.0-36.0) g/dL RDW (12.1-15.1) % Plt Count (130-400) 10^3/c mm MPV (7.4-10.4) fL Neut % (Auto) % Lymph % (Auto) % Leslie % (Auto) % Eos % (Auto) % Baso % (Auto) % Neut # (Auto) (1.8-7.7) 10^3/u L Lymph # (Auto) (0.8-4.8) 10^3/u L Leslie # (Auto) (0.2-0.9) 10^3/u L Eos # (Auto) (0.0-0.8) 10^3/u L Baso # (Auto) (0.0-0.1) 10^3/u L Nucleated RBC % (a uto) % Nucleated RBCs # /100WBC Specimen Type Sample Site ABG pH (7.35-7.45) ABG pCO2 (35-45) mmHg ABG pO2 (80.0-100.0) mmH g ABG HCO3 (22-26) mmol/L ABG Base Excess (-2.0-2.0) mmol/ L Alberto Test Hematocrit (42-52) % Hgb O2 Saturation (95-100) % Carboxyhemoglobin (0.4-20.1) %THgb Methemoglobin (0.4-1.5) % Total Hemoglobin (14-18) g/dL O2 Delivery Device O2 Liters/Min % Environmental Research Project Manager ID Sodium (136-145) mmol/L Potassium (3.5-5.1) mmol/L Chloride (98-107) mmol/L Carbon Dioxide (22-29) mmol/L Anion Gap (5-19) BUN (8-23) mg/dL Creatinine (0.7-1.2) mg/dL GFR Calculation Glucose (65-115) mg/dL Calculated Osmolal ity (285-295) mOsm/k g Lactic Acid 0.8 (0.5-2.2) mmol/L Calcium (8.5-10.5) mg/dL Total Bilirubin (0.15-1.2) mg/dL AST (0-40) U/L ALT (0-41) U/L Alkaline Phosphata se (40-130) IU/L Creatine Kinase (39-308) U/L Troponin T Baselin e 15 (0-15) ng/L NT-Pro-B Natriuret Pep (0-450) pg/mL Total Protein (6.6-8.7) g/dL Albumin (3.5-5.2) g/dL Globulin (1.3-4.6) g/dL Urine Color Yellow (Yellow) Urine Appearance Clear (CLEAR) Urine pH 5 (5-7) Ur Specific Gravit y 1.020 (1.005-1.030) Urine Protein 2+ H (Negative) Urine Glucose (UA) Norm (Normal) Urine Ketones 1+ H (Negative) Urine Blood 3+ H (Negative) Urine Nitrate Negative (Negative) Urine Bilirubin 1+ H (Negative) Urine Urobilinogen 1 H (Negative) mg/dL Ur Leukocyte Xochilt ase Negative (Negative) Urine RBC 5-10 H (0-2) /hpf Urine WBC 10-15 H (0-5) /hpf Ur Squamous Epith Cells 0-4 H (0-5) /hpf Amorphous Sediment Not Reportable Urine Bacteria Trace (NONE) /hpf Hyaline Casts 5-10 H /lpf Urine Mucus 2+ /hpf Discharge Plan Discharge Patient Disposition: Xfer Short-Term Hosp Clinical Impression: Cerebrovascular accident, Altered mental status, Cardiac arrest, cause unspecified Condition: Stable Referrals: Mary Jo Hahn MD [Primary Care Provider] - Coding Level of Care Code ED Economic History Teacher for Shalini Sanders
[2020-10-26 00:01] LABS: Add Urine Microscopic? YES; Bilirubin Urine 1+ (Negative); Blood Urine 3+ (Negative); Glucose Urine UA Norm (Normal); Ketones Urine 1+ (Negative); Leukocyte Esterase Urine Negative (Negative); Nitrate Urine Negative (Negative); Protein Urine 2+ (Negative); Urine Appearance Clear (CLEAR); Urine Color Yellow (Yellow); Urobilinogen Urine 1 mg/dL (Negative); pH Urine 5 (5-7)
[2020-10-26 00:02] LABS: Bacteria Urine TRACE /hpf; Mucus Urine 2+ /hpf; Squamous Epithelial Cell Urine 0-4 /hpf (0-5)
[2020-10-26 00:31] VITALS: BP 107/65; PULSE 72; RESP 14; O2SAT 99
--- NOTE | 2020-10-26 00:31 | PC.NURSE ---
report to Ziggy PEREIRA
== END 2020-10-26 00:49 | disposition short-term general hospital (02) ==
PROVIDERS: Emergency Provider Family Medicine; PCP Family Medicine
DX: I63.9 Cerebral infarction, unspecified (principal); R41.82 Altered mental status, unspecified; I46.9 Cardiac arrest, cause unspecified; Z87.891 Personal history of nicotine dependence; Z86.79 Personal history of other diseases of the circulatory system; Z86.011 Personal history of benign neoplasm of the brain; I10 Essential (primary) hypertension
CPT/HCPCS: 36600; 70450; 71250; 72125; 74176; 80053; 81001; 81003; 82550; 82805; 83605; 83880; 84484; 85025; 87040; 96361; 96374; 99285; J2405; J7030

== ENCOUNTER 2020-11-07 12:52 | Emergency (ER) | payer MEDICARE, OTHER, SELFPAY ==
[2020-11-07 13:01] VITALS: BP 135/80; PULSE 88; RESP 14; O2SAT 98; BMI 25.8
--- NOTE | 2020-11-07 13:21 | CT_ITS ---
WS: [id number] CT HEAD TECHNIQUE: Noncontrast CT of the head obtained from the skullbase to the vertex. CLINICAL INFORMATION: HEADACHE COMPARISON: October 25, 2020 DLP: 877.[address] scans at [facility] use at least one of these dose optimization techniques: automat ed exposure control; mA and/or kV adjustment per patient size (includes targeted exams where dose is matched to clinical indication); or iterative reconstruction. FINDINGS: Prior postoperative changes left occipital craniotomy with encephalomalacia involving the l eft cerebellar peduncles and left cerebellar hemisphere. This is unchanged from previous. Moderate sm all vessel changes. Moderate parenchymal volume loss. No evidence of intracranial hemorrhage or mass effect. Ventricular system and basal cisterns are stuart nt. Paranasal sinuses and mastoid air cells are well aerated. . CT/CT head wo con* [id number] IMPRESSION: 1. No evidence of intracranial hemorrhage or mass effect. 2. Prior left occipital craniotomy with encephalomalacia involving the left ce rebellar peduncles and left cerebellar hemisphere unchanged. 3. No acute intracranial findings.
--- NOTE | 2020-11-07 13:21 | ED_ITS ---
HPI - Fall General: Chief Complaint: Fall Stated Complaint: FALL Time Seen by Provider: 11/07/20 13:18 History of Present Illness: HPI Narrative: This patient is a 80-year-old male with a had a fall while at the rehab facility today. Patient recently underwent a brain tumor removal causing right-sided weakness which is his baseline. Patient denies loss of consciousness. Patient states he did hit the side of the head that he did have surgery on. Patient has no other complaints. Will do medical evaluation treat as needed complaint: fall Onset (ago): minute(s) Fall from: standing Fall witnessed: yes, by living facility staff Loss of consciousness: None Prolonged down time: no Symptoms prior to fall: none Context: tripped/slipped Location of injury: head Associated symptoms-after fall: Denies abdominal pain, chest pain, headache(s), lightheadedness or neck pain Review of Systems General: Reports: 10 or more systems reviewed and unremarkable except in HPI and below Const: Denies: fever(s), chills, body aches or fatigue Eyes: Denies: change in vision or blurry vision ENMT: Denies: throat pain, hoarseness or mouth pain Card: Denies: chest pain, palpitations, irregular heart rhythm, edema, swelling of feet/ankles or lightheadedness Resp: Denies: dyspnea, productive cough, non-productive cough, wheezing or pain on inspiration GI: Denies: abdominal pain, nausea or vomiting : Denies: flank pain, dysuria, urinary frequency, urinary urgency or urinary hesitancy Musc: Denies: neck pain, back pain, extremity pain, extremity swelling, joint pain, joint swelling, joint redness, joint warmth or limited range of motion Skin/Breast: Denies: rash, pruritus, erythema or skin tenderness Neuro: Denies: headache(s), numbness in extremities or weakness in extremities Psych: Denies: anxiety or depression PFSH ED PFSH: Medical History Anxiety Aortic aneurysm Cataract Cerebellar tumor Diverticulitis Emphysema lung H/O: lung cancer Hypertension senior living (current) use of opiate analgesic FRANK (obstructive sleep apnea) Pain management contract signed Skin lesion Surgical History Hx of appendectomy Hx of tonsillectomy Family History Other CHF (congestive heart failure) Lung disease Social History Smoking and tobacco status: former smoker Quit status (tobacco): has quit using tobacco Year quit tobacco: 2004 Alcohol intake: never Household members: spouse Marital status: Physical Exam Const: COMMON NORMALS: no acute distress, average body habitus, patient oriented x3, no limitations, healthy appearing, alert and well nourished HENMT: COMMON NORMALS: normocephalic, atraumatic, hearing grossly normal bilaterally, external ears normal, EAC's normal, TM's normal bilaterally, Normal external nose present, Normal nasal mucous membranes and turbinates present, moist oral mucous membranes, oropharynx normal, dentition normal and gingiva normal HEAD & SCALP: normocephalic and atraumatic NOSE: Normal external nose present and Normal nasal mucous membranes and turbinates present EXTERNAL EAR: Yes external ears normal EXTERNAL AUDITORY CANAL: EAC's normal TYMPANIC MEMBRANE: TM's normal bilaterally Neck/C-Spine: COMMON NORMALS: full ROM, no lymphadenopathy, supple, no meningeal signs, no JVD, Thyroid normal and No carotid bruits THYROID: Thyroid normal Chest: COMMONS NORMALS: normal inspection of the chest, normal palpation of entire chest wall, normal inspection of the breasts and normal palpation of the breasts Breast/axilla inspection: Yes normal inspection of the breasts BREAST/AXILLA PALPATION: Yes normal palpation of the breasts Resp: COMMON NORMALS: normal respiratory effort, No retractions, No use of accessory muscles, clear to auscultation bilaterally and percussion normal AUSCULTATION: clear to auscultation bilaterally PERCUSSION: percussion normal Cardio: COMMON NORMALS: no JVD, regular rate, regular rhythm, S1 normal heart sound present, S2 normal heart sound present, No gallops present (Cardio), No clicks present (Cardio), No murmurs present (Cardio), No rub (Cardio) and Peripheral pulses 2+ throughout RATE: regular rate RHYTHM: regular rhythm HEART SOUNDS: S1 normal heart sound present and S2 normal heart sound present PERIPHERAL PULSES: Peripheral pulses 2+ throughout GI: COMMON NORMALS: Normal to inspection, nondistended, normoactive bowel sounds present, Soft to palpation, non-tender, No hepatosplenomegaly present, no masses and no bruits PALPATION: Yes Soft to palpation and Yes No hepatosplenomegaly present : COMMON NORMALS: Yes no CVA tenderness BLADDER/KIDNEY EXAM: Yes no CVA tenderness Back/Pelvis: COMMON NORMALS: no CVA tenderness, thoracic and lumbar spine normal to inspection, no thoracic nor lumbar tenderness, thoraco-lumbar ROM normal and straight leg raise negative bilaterally Extremity: COMMON NORMALS: normal to inspection, full ROM, capillary refill normal, no joint enlargement, no clubbing, cyanosis or edema, no calf tenderness and no pedal edema Neuro: COMMON NORMALS: patient oriented x3 SENSORIUM/ORIENTATION: Yes alert MENINGEAL SIGNS: Yes no meningeal signs Course Vital Signs: Vital signs: Vital Signs Pulse Rate 88 11/07/20 13:01 Respiratory Rate 14 11/07/20 13:01 Blood Pressure 135/80 11/07/20 13:01 Pulse Oximetry 98 11/07/20 13:01 MDM - Fall MDM Narrative: Medical decision making narrative: Negative evaluation in the emergency department. Patient be discharged home back to the rehab facility continue current postoperative treatment. Medical Records: Attestation: I reviewed the patient's medical records. Lab Data: Attestation: I reviewed the patient's lab results. Imaging Data^: CT Head: Attestation: I personally reviewed and interpreted this imaging study as follows: Radiologist's impression: IMPRESSION: 1. No evidence of intracranial hemorrhage or mass effect. 2. Prior left occipital craniotomy with encephalomalacia involving the left cerebellar peduncles and left cerebellar hemisphere unchanged. 3. No acute intracranial findings. Discharge Plan Discharge Patient Disposition: Home Clinical Impression: Fall, Cerebellar tumor, Status post craniotomy Condition: Stable Prescriptions: No Action lisinopril 10 mg tablet 10 mg PO DAILY@0800 RF: 0 acetaminophen [Tylenol] 325 mg tablet 650 mg PO Q4H PRN (Reason: Pain/FEVER) RF: 0 famotidine 20 mg tablet 20 mg PO BID@0800,2000 RF: 0 Senna-S 8.6-50 mg Tablet 2 tab-cap PO BID RF: 0 sodium chloride 1 gram Tablet 3 g PO TID RF: 0 tamsulosin 0.4 mg Capsule 0.4 mg PO DAILY RF: 0 Vigamox 0.5 % Drops 1 drp OPHTHALMIC (EYE) Q6H RF: 0 Artificial Tears (cmc) 1 % Drops 2 drp OPHTHALMIC (EYE) Q8H RF: 0 Discharge Orders: Discharge ED (Routine); Ordered 11/07/20 Ordered By: Kwadwo Liriano Referrals: Andre Villar MD [Primary Care Provider] - Discharge Diet: Advance as tolerated Discharge Activity: Resume usual activity Patient Instructions: Opioid Safety Activity Restrictions/Additional Instructions: Continue with your current rehab regimen. Watch closely for falls because you are at high risk for falls due to your recent surgery. And residual weakness to the right side. Coding Level of Care Code ED Demi Chef for Shalini Fwd Exam Comprehensive
== END 2020-11-07 21:58 | disposition home or self-care (01) ==
PROVIDERS: Emergency Provider Emergency Medicine; PCP Internal Medicine
DX: D49.6 Neoplasm of unspecified behavior of brain (principal); Z98.890 Other specified postprocedural states; J43.9 Emphysema, unspecified; Z85.118 Personal history of other malignant neoplasm of bronchus and lung; I10 Essential (primary) hypertension; Z87.891 Personal history of nicotine dependence; W19.XXXA Unspecified fall, initial encounter
CPT/HCPCS: 70450; 99282

== ENCOUNTER → 2021-03-04 15:12 | Outpatient (BNVA) | payer MEDICARE, OTHER, SELFPAY | PROVIDERS: PCP Internal Medicine; Visit Provider Nurse Practitioner Family | DX: N40.1 Benign prostatic hyperplasia with lower urinary tract symptoms (principal) | CPT/HCPCS: 81003 ==

== ENCOUNTER 2021-04-01 11:19 | Outpatient (CLI) | payer MEDICARE, OTHER, SELFPAY ==
--- NOTE | 2021-04-01 11:33 | FL_ITS ---
WS: [id number] Exam: FL barium swallow modifd [id number] Date/Time of Exam: 04/01/2021 11:39 AM Reason For Exam: Oropharyngeal dysphagia Fluoroscopy time: minutes The exam was performed in conjunction with the speech therapy service. The patient experienced mild aspiration when ingesting thin liquid barium solutions. Also noted was m ild penetration into the laryngeal inlet when the patient ingested nectar consistency barium foodstuf fs. Swallowing function at the level of the oropharynx was unremarkable. The patient tolerated puddin g consistency barium foodstuffs and ingested a barium pill without incident. FL/FL barium swallow modifd [id number] IMPRESSION: 1. Minimal aspiration noted when the patient ingested thin liquid barium soluti on. 2. Mild penetration observed when the patient ingested nectar consistency bariu m foodstuffs. A separate report of findings and recommendations will follow from the speech t herapy service.
== END 2021-04-01 11:20 | disposition home or self-care (01) ==
LOC: RAD 11:24
PROVIDERS: PCP Internal Medicine; Visit Provider Internal Medicine
DX: R13.12 Dysphagia, oropharyngeal phase (principal)
CPT/HCPCS: 74230; 92611

== ENCOUNTER 2021-05-03 10:43 | Outpatient (CLI) | payer MEDICARE, OTHER, SELFPAY ==
--- NOTE | 2021-05-03 14:30 | CT_ITS ---
WS: [id number] CT HEAD TECHNIQUE: Noncontrast CT of the head obtained from the skullbase to the vertex. CLINICAL INFORMATION: Left sided weakness, acute mental status change. COMPARISON: CT November 07, 2020 DLP: 1949.[address] scans at [facility] use at least one of these dose optimization techniques: automated e xposure control; mA and/or kV adjustment per patient size (includes targeted exams where dose is matc hed to clinical indication); or iterative reconstruction. FINDINGS: No evidence of intracranial hemorrhage or mass effect. Prior postoperative changes left occipital aircraft engineer niotomy with encephalomalacia involving the left cerebellar peduncles and hemisphere. This is unchang ed from previous. Moderate small vessel changes with moderate parenchymal volume loss. Intracranial v ascular calcification. Mastoid air cells are well aerated. Mild mucosal thickening ethmoid air cells. CT/CT head wo con* [id number] IMPRESSION: 1. No evidence of intracranial hemorrhage or mass effect. 2. Prior left occipital craniotomy with encephalomalacia involving the left ce rebellar peduncles and left cerebellar hemisphere unchanged. 3. No acute intracranial findings.
== END 2021-05-03 10:44 | disposition home or self-care (01) ==
PROVIDERS: PCP Internal Medicine; Visit Provider Nurse Practitioner Family
DX: R53.1 Weakness (principal); R41.82 Altered mental status, unspecified
CPT/HCPCS: 70450